=== PATIENT | female | born 1975 | race Caucasian/White ===

== ENCOUNTER 2016-06-24 16:24 | Emergency (ER) | payer OTHER ==
--- NOTE | ~2016-06-24 | CR252 ---
[facility]. [facility] A Service of [facility] & [facility] RADIOLOGY TEXT RESULTS PATIENT: JERRY PARDO LOCATION: SED : 75 UNIT #: [id number] AGE: [address]: Jamaica Greene APRN SEX: F ORDER DR: [id number] [place] [id number] E MR#: [id number] Acc #: [id number] NAME: JERRY PARDO : 1975 SEX: F STUDY DATE/TIME: 06/24/2016 16:39 UNIT: SED ROOM: STUDY DESCRIPTION: CR Tibia and Fibula 2 Views Lt Attending Physician: Jamaica Greene A.P.R.N. Referring Physician: Jamaica Greene A.P.R.N. Ordering Physician: Jamaica Greene A.P.R.N. Primary Care Physician: Rafael Patel Pa-C MEDICAL IMAGING REPORT This report is preliminary unless electronic signature is present. EXAM Left tibia-fibula AP and lateral HISTORY Leg pain after fall yesterday. FINDINGS AP and lateral views of left tibia and fibula demonstrate normal bone alignment. No fracture, joint space narrowing or dislocation. Mild degenerative changes in the medial and lateral compartments of the knee. IMPRESSION No acute findings Dictated by... Gilles Frey M.D. THIS IS AN ELECTRONICALLY VERIFIED REPORT Gilles Frey M.D. at 06/25/2016 1:23 PM DFL/samir TD: 06/25/2016 00:47 JOB #: [id number] MEDICAL IMAGING REPORT Page 1 of 1
--- NOTE | ~2016-06-24 | CR170 ---
[facility]. [facility] A Service of [facility] & [facility] RADIOLOGY TEXT RESULTS PATIENT: JERRY PARDO LOCATION: SED : 75 UNIT #: [id number] AGE: [address]: Jamaica Greene APRN SEX: F ORDER DR: [id number] [place] [id number] E MR#: [id number] Acc #: [id number] NAME: JERRY PARDO : 1975 SEX: F STUDY DATE/TIME: 06/24/2016 16:39 UNIT: SED ROOM: STUDY DESCRIPTION: CR Knee 2 Views Rt Attending Physician: Jamaica Greene A.P.R.N. Referring Physician: Jamaica Greene A.P.R.N. Ordering Physician: Jamaica Greene A.P.R.N. Primary Care Physician: Rafael Patel Pa-C MEDICAL IMAGING REPORT This report is preliminary unless electronic signature is present. EXAM Right knee 2 views HISTORY Knee pain after fall yesterday. FINDINGS 2 views of the right knee demonstrate satisfactory bone alignment. Mild degenerative changes in the patellofemoral joint. Very small medial and lateral joint line marginal osteophytes. No fracture or effusion. IMPRESSION No acute findings. Mild degenerative changes in the knee primarily in the patellofemoral joint. Dictated by... Gilles Frey M.D. THIS IS AN ELECTRONICALLY VERIFIED REPORT Gilles Frey M.D. at 06/25/2016 1:24 PM DFL/aniya TD: 06/25/2016 01:32 JOB #: [id number] MEDICAL IMAGING REPORT Page 1 of 1
--- NOTE | ~2016-06-24 | CR169 ---
[facility]. [facility] A Service of [facility] & [facility] RADIOLOGY TEXT RESULTS PATIENT: JERRY PARDO LOCATION: SED : 75 UNIT #: [id number] AGE: [address]: Jamaica Greene APRN SEX: F ORDER DR: [id number] [place] [id number] E MR#: [id number] Acc #: [id number] NAME: JERRY PARDO : 1975 SEX: F STUDY DATE/TIME: 06/24/2016 16:39 UNIT: SED ROOM: STUDY DESCRIPTION: CR Knee 2 Views Lt Attending Physician: Jamaica Greene A.P.R.N. Referring Physician: Jamaica Greene A.P.R.N. Ordering Physician: Jamaica Greene A.P.R.N. Primary Care Physician: Rafael Patel Pa-C MEDICAL IMAGING REPORT This report is preliminary unless electronic signature is present. EXAM Left knee 2 views HISTORY Knee pain after fall yesterday. FINDINGS 2 views left knee demonstrate small lateral joint line marginal osteophyte and small to moderate medial joint line marginal osteophyte and mild degenerative changes in the patellofemoral joint. Small suprapatellar effusion. No fracture. Small area of benign appearing sclerosis in the medial femoral condyle. IMPRESSION 1. Small suprapatellar effusion. 2. No fracture. 3. Mild degenerative changes in the knee. Dictated by... Gilles Frey M.D. THIS IS AN ELECTRONICALLY VERIFIED REPORT Gilles Frey M.D. at 06/25/2016 1:24 PM DFL/aniya TD: 06/25/2016 01:28 JOB #: [id number] MEDICAL IMAGING REPORT Page 1 of 1
--- NOTE | ~2016-06-24 | CR126 ---
[facility]. [facility] A Service of [facility] & [facility] RADIOLOGY TEXT RESULTS PATIENT: JERRY PARDO LOCATION: SED : 75 UNIT #: [id number] AGE: [address]: Jamaica Greene APRN SEX: F ORDER DR: [id number] [place] [id number] E MR#: [id number] Acc #: [id number] NAME: JERRY PARDO : 1975 SEX: F STUDY DATE/TIME: 06/24/2016 16:39 UNIT: SED ROOM: STUDY DESCRIPTION: CR Foot Complete Min 3 View Lt Attending Physician: Jamaica Greene A.P.R.N. Referring Physician: Jamaica Greene A.P.R.N. Ordering Physician: Jamaica Grenee A.P.R.N. Primary Care Physician: Rafael Patel Pa-C MEDICAL IMAGING REPORT This report is preliminary unless electronic signature is present. EXAM Left foot 3 views HISTORY Foot pain after fall yesterday. FINDINGS 3 views of the left foot demonstrate satisfactory bone alignment. No fracture, joint space narrowing or dislocation. Small posterior calcaneal spur. IMPRESSION No acute findings. Dictated by... Gilles Frey M.D. THIS IS AN ELECTRONICALLY VERIFIED REPORT Gilles Frey M.D. at 06/25/2016 1:23 PM DFL/samir TD: 06/25/2016 01:21 JOB #: [id number] MEDICAL IMAGING REPORT Page 1 of 1
[~2016-06-24 16:24] MED LIST: ALBUTEROL17 GM INH; AMOXICILLIN PO; AMOXICILLIN500 M1 PO; ASPIRIN81 MG PO; BACTRIM DS TABL1 TA1 PO; CLARITIN10 M1 PO; CLINDAMYCIN HC300 MG PO; CORTISPORIN-TC10 M1 AD; FLOXIN OTIC5 M1 AD; GLIPIZIDE5 MG/BOTTL PO; GLUCOPHAGE500 MG PO; GLUCOTROL PO; KEFLEX500 M1 PO; KEFLEX500 MG PO; LISINOPRIL PO; LISINOPRIL20 MG PO; MAGIC MOUTHWASH; MAGIC MOUTHWASH PO; PROMETHAZINE D118 ML PO; TAMIFLU75 M1 PO; TOPROL XL 50 MG50 MG PO; TOPROL XL PO; VOLTAREN50 MG PO; VOLTAREN75 MG PO; ZITHROMAX PO
== END 2016-06-24 18:22 | disposition home or self-care (01) ==
LOC: SED 16:24
DX: S80.02XA Contusion of left knee, initial encounter (principal); S80.01XA Contusion of right knee, initial encounter; E11.9 Type 2 diabetes mellitus without complications; I10 Essential (primary) hypertension; E78.5 Hyperlipidemia, unspecified; F17.200 Nicotine dependence, unspecified, uncomplicated; W18.30XA Fall on same level, unspecified, initial encounter
CPT/HCPCS: 29505; 73560; 73590; 73630; 99284